=== PATIENT | male | born 1955 | race Caucasian/White ===

== ENCOUNTER 2023-09-15 09:59 | Day surgery (SDC) | payer MEDICARE, OTHER ==
[~2023-09-15] VITALS: Ht 177.8 cm; Wt 113.6 kg
[~2023-09-15 09:59] MED LIST: LR 1,000 ML IV SCH; Ondansetron 4 MG/2 ML VIAL IV PRN
[2023-09-15] MEDS ORDERED: Glycopyrrolate 0.2 MG/ML 1 ML VIAL ONE (12:03)
[2023-09-15] MEDS ORDERED: Lidocaine PF 2% (20 MG/ML) 5 ML VIAL ONE (12:03)
[2023-09-15 12:44] VITALS: BP 105/60; PULSE 48; TEMP 96.8
[2023-09-15 13:00] VITALS: BP 106/54; PULSE 53
[2023-09-15 13:15] VITALS: BP 117/61; PULSE 44
--- NOTE | 2023-09-15 13:37 | NUR ---
1244- PATIENT RETURNS TO [facility] [place] [facility] VIA CART. PT AWAKE AND ALERT. RESPIRATIONS UNLABORED. AMBULATED TO RECLINER CHAIR WITH 2:1 SBA. PT DENIES NAUSEA OR ABDOMINAL PAIN. HOOKED UP TO MONITOR AND VS OBTAINED. pT TAKING A BETA EARL- HE WAS ENCOURAGED TO CALL HIS BRICK OFFBEARER TO DISCUSS HIS LOW HR'S- PT AND HIS AGREED WITH PLAN. CALL LIGHT AT SIDE. 1256- PATIENT TOLERATING ORANGE JUICE& COFFEE AND MUFFIN WITHOUT NAUSEA OR DIFFICULTY SWALLOWING. 1317- DR. MELTON IN ROOM SPEAKING WITH PATIENT. 1327- D/C INSTRUCTIONS REVIEWED WITH PATIENT. PT VERBALIZED UNDERSTANDING AND A COPY OF INSTRUCTIONS PROVIDED IN D/C FOLDER. 1330- PATIENT DRESSES SELF. 1337- PATIENT DISCHARGED FROM UNIT VIA W/C TO A PERSONAL VEHICLE. PT LEFT HOSPITAL IN STABLE CONDITION.
[2023-09-15] MEDS ORDERED: PROTONIX 40MG T40 MG PO (14:40)
[2023-09-15] MEDS ORDERED: LIPITOR 80MG80 MG PO (14:40)
[2023-09-15] MEDS ORDERED: PRINIVIL5 MG PO (14:41)
[2023-09-15] MEDS ORDERED: SYNTHROID0.137 MG (14:41)
[2023-09-15] MEDS ORDERED: PLAVIX 75MG TAB75 MG PO (14:42)
[2023-09-15] MEDS ORDERED: TOPROL XL 25MG25 MG PO (14:42)
[2023-09-15] MEDS ORDERED: ZYRTEC 10MG10 MG PO (14:43)
[2023-09-15] MEDS ORDERED: THE MEDICINE S200 M2 PO (14:43)
[2023-09-15] MEDS ORDERED: PEPCID 20MG TAB20 MG PO (14:44)
[2023-09-15] MEDS ORDERED: VITAMIN D250 MCG PO (14:44)
[2023-09-15] MEDS ORDERED: ASPIRIN E.C. 8181 MG PO (14:45)
[2023-09-15] MEDS ORDERED: XALATAN EYE DROPS OU (14:46)
[2023-09-15] MEDS ORDERED: ALPHAGAN 15 ML15 ML OU (14:47)
[2023-09-15] MEDS ORDERED: COSOPT 2%-0.5%10 ML OU (14:47)
[2023-09-15 15:01] VITALS: BP 120/63; PULSE 50; TEMP 97.6
== END 2023-09-15 13:37 | disposition home or self-care (01) ==
LOC: SDCO 09:59
DX: K22.2 Esophageal obstruction (principal); G47.33 Obstructive sleep apnea (adult) (pediatric); F17.290 Nicotine dependence, other tobacco product, uncomplicated
CPT/HCPCS: C1726; J2704; J7120

== ENCOUNTER 2023-10-20 17:03 | Emergency (ER) | payer MEDICARE, OTHER ==
[~2023-10-20] VITALS: Ht 177.8 cm; Wt 109.1 kg
[~2023-10-20 17:03] MED LIST changes: +ALPHAGAN 15 ML15 ML OU; +ASPIRIN E.C. 8181 MG PO; +COSOPT 2%-0.5%10 ML OU; +LIPITOR 80MG80 MG PO; -LR 1,000 ML IV SCH; -Ondansetron 4 MG/2 ML VIAL IV PRN; +PEPCID 20MG TAB20 MG PO; +PLAVIX 75MG TAB75 MG PO; +PRINIVIL5 MG PO; +PROTONIX 40MG T40 MG PO; +SYNTHROID0.137 MG; +THE MEDICINE S200 M2 PO; +TOPROL XL 25MG25 MG PO; +VITAMIN D250 MCG PO; +XALATAN EYE DROPS OU; +ZYRTEC 10MG10 MG PO
[2023-10-20 17:11] VITALS: TEMP 98.1
[2023-10-20 17:45] LABS: BASO % 0.9 % (0.0-2.0); EOS # 0.1 K/mm3 (0.0-0.7); EOS % 2.2 % (0.0-4.0); GRAN # 2.5 K/mm3 (1.4-6.5); GRAN % 55.7 % (42.2-75.2); HEMATOCRIT 40.5 % (42.0-52.0); HEMOGLOBIN 14.2 g/dl (13.5-18.0); LYMPH # 1.4 K/mm3 (1.2-3.4); LYMPH % 31.6 % (20.0-51.0); MEAN CELL VOLUME 90 fl (80.0-100.0); MEAN CORPUSCULAR HEMOGLOBIN 31 pg (27-31); MEAN CORPUSCULAR HGB CONC 35 g/dl (33.0-37.0); MEAN PLATELET VOLUME 9.1 fl (7.4-10.4); MONO # 0.4 K/mm3 (0.1-0.6); MONO % 9.4 % (1.7-9.3); PLATELET COUNT 126 K/mm3 (130-400); RED BLOOD COUNT 4.52 M/mm3 (4.20-5.60)
[2023-10-20] MEDS ORDERED: Ketorolac 15 MG/ML VIAL IV ONE (17:45)
[2023-10-20 18:05] LABS: ALANINE AMINOTRANSFERASE 16 U/L (0-55); ALBUMIN 3.9 gm/dL (3.4-4.8); ALKALINE PHOSPHATASE 76 U/L (40-150); ANION GAP 7 mmol/L (7-16); AST,SGOT 22 U/L (5-34); BLOOD UREA NITROGEN 18 mg/dL (8-26); CALCIUM 9.4 mg/dL (8.4-10.2); CARBON DIOXIDE 23 mmol/L (23-31); CHLORIDE 112 mmol/L (98-107); CREATININE, serum 0.88 mg/dL (0.72-1.25); GLUCOSE 144 mg/dL (70-99); LIPASE 64 U/L (8-78); POTASSIUM 3.6 mmol/L (3.5-4.5); SODIUM 142 mmol/L (136-145); TOTAL PROTEIN 6.4 gm/dL (6.2-8.1)
[2023-10-20 18:17] LABS: TROPONIN-I < 0.010 ng/mL (0.00-0.033)
[2023-10-20 18:19] LABS: BILIRUBIN,TOTAL 0.6 mg/dL (0.2-1.2)
[2023-10-20 18:36] LABS: PH 5.5 (5.0-8.5); URINE APPEARANCE CLEAR (CLEAR/HAZY); URINE BLOOD NEGATIVE (NEGATIVE); URINE COLOR YELLOW (YELLOW); URINE GLUCOSE NEGATIVE (NEGATIVE); URINE KETONE NEGATIVE (NEGATIVE); URINE NITRATE NEGATIVE (NEGATIVE); URINE PROTEIN(semi-quant) NEGATIVE (NEGATIVE); URINE UROBILINOGEN 0.2 E.U/dL (0.2-1.0)
[2023-10-20 18:42] LABS: COLLECTION METHOD CLEAN CATCH
[2023-10-20] MEDS ORDERED: Home oxyCODONE/Acetaminophen 5/325 MG #4 TAB/PACK PO ONE (19:00)
[2023-10-20] MEDS ORDERED: ROXICODONE 55 MG/TAB PO (19:01)
[2023-10-20 19:13] VITALS: BP 136/69; PULSE 57
== END 2023-10-20 19:13 | disposition home or self-care (01) ==
LOC: COL.ER 17:03
PROVIDERS: Emergency Medicine
DX: N20.1 Calculus of ureter (principal); Z87.442 Personal history of urinary calculi; Z87.891 Personal history of nicotine dependence
CPT/HCPCS: J1885

== ENCOUNTER 2023-11-21 11:34 | Day surgery (SDC) | payer MEDICARE, OTHER ==
[~2023-11-21] VITALS: Ht 177.8 cm; Wt 113.8 kg
[2023-11-21] VITALS (19 sets, daily range): BP systolic 122–158; BP diastolic 61–89; PULSE 44–56; TEMP 96.9–98
[~2023-11-21 11:34] MED LIST changes: +Famotidine 20 MG TAB PO SCH; +LR 1,000 ML IV SCH; +Metoclopramide 10 MG TAB PO SCH; +ROXICODONE 55 MG/TAB PO
[2023-11-21] MEDS ORDERED: fentaNYL 50 MCG/ML 2 ML VIAL IV PRN ×2 (12:30)
[2023-11-21] MEDS ORDERED: HYDROmorphone 2 MG/1 ML VIAL IV PRN (12:30)
[2023-11-21] MEDS ORDERED: hydrALAZINE 20 MG/ML 1 ML VIAL IV PRN (12:30)
[2023-11-21] MEDS ORDERED: Ondansetron 4 MG/2 ML VIAL IV PRN ×2 (12:30→15:45)
[2023-11-21] MEDS ORDERED: droPERidol 2.5 MG/ML 2 ML VIAL IV PRN (12:30)
[2023-11-21] MEDS ORDERED: VITAMIN D362.5 MC1 PO (12:39)
[2023-11-21] MEDS ORDERED: TYLENOL 325MG325 MG PO (12:41)
[2023-11-21] MEDS ORDERED: FOCUS FACTOR (12:42)
--- NOTE | 2023-11-21 13:12 | NUR ---
pt to ct per cart. Pt onto ct table in prone position. Monitors applied and O2 on at 2l/nc.
[2023-11-21] MEDS ORDERED: Midazolam 2 MG/2 ML VIAL IV SCH ×2 (13:25→14:00)
--- NOTE | 2023-11-21 13:42 | NUR ---
1300: PATIENT TO RADIOLOGY VIA COT AT THIS TIME.
[2023-11-21] MEDS ORDERED: fentaNYL 50 MCG/ML 2 ML VIAL ONE (15:02)
[2023-11-21] MEDS ORDERED: Lidocaine PF 2% (20 MG/ML) 5 ML VIAL ONE (15:02)
--- NOTE | 2023-11-21 15:18 | NUR ---
1505 - Dr. Campuzano discussed with staff about obtaining a consent for a right ureteroscopy with laser stone ablation on the patient. Discussion had that patient received Versed before for attempted placement of guidewire at 1400. Dr. iWlls stated that he was still comfortable with the patient signing his own consent and reiterated that research shows patients competence after small doses. 1515 - Discussion had with patient at this time about procedure and Dr. Campuzano recommendation to have Right ureteroscopy with laser stone ablation. is at bedside and both patient and verbalized understanding of procedure to this nurse. Patient is alert and oriented x4. Dr. Campuzano also walked in at this time and discussed risks and benefits with the patient and they all agreed to proceed with procedure. Consent is signed by patient. Will continue to monitor at this time.
--- NOTE | 2023-11-21 15:19 | NUR ---
1433: PATIENT BACK FROM RADIOLOGY AT THIS TIME VIA COT. VSS. BREATHING EVEN AND UNLABORED. SPO2 94% ON ROOM AIR. 1445: PATIENT REQUESTING URINAL. URINATED 400ML OF TEA COLORED URINE. 1535: PATIENT TO OR AT THIS TIME.
[2023-11-21] MEDS ORDERED: Glycopyrrolate 0.2 MG/ML 1 ML VIAL ONE (15:39)
[2023-11-21] MEDS ORDERED: Acetaminophen 325 MG TAB PO PRN (15:45)
[2023-11-21] MEDS ORDERED: Naloxone 0.4 MG/ML VIAL IV PRN (15:45)
[2023-11-21] MEDS ORDERED: Hyoscyamine 0.125 MG Sublingual TAB SL PRN (15:45)
[2023-11-21] MEDS ORDERED: Rocuronium 50 MG/5 ML Multi-Dose VIAL ONE (15:52)
[2023-11-21] MEDS ORDERED: ePHEDrine 50 MG/ML VIAL ONE (15:54)
[2023-11-21] MEDS ORDERED: Lidocaine 2% (20 MG/ML) 20 ML UROJET UR ONE (16:00)
[2023-11-21] MEDS ORDERED: LR 1,000 ML IV ONE (16:03)
[2023-11-21] MEDS ORDERED: Acetaminophen 500 MG TAB PO SCH (16:39)
--- NOTE | 2023-11-21 18:33 | NUR ---
1640 Received post op from BRE Reynoso. 1655 Patient returned to bay 4 from PACU. Patient is alert and oriented, answering questions appropriately. 1700 Patient given juice and crackers with peanut butter for a PO challenge. Tolerated well. 1735 Reviewed printed physician discharge instructions and patient educational materials with patient and his . Questions in vited and answered. Patient given a strainer to strain urine. Patient has used a strainer previously. 1747 Patient to lobby via wheel chair for ride home with his in POV.
== END 2023-11-21 17:47 | disposition home or self-care (01) ==
LOC: SDCO 11:34
DX: N20.0 Calculus of kidney (principal); R35.0 Frequency of micturition; R35.1 Nocturia; G47.33 Obstructive sleep apnea (adult) (pediatric); Z87.891 Personal history of nicotine dependence
CPT/HCPCS: C1769; C2617; J0690; J2250; J2704; J3010; J7120

== ENCOUNTER 2023-12-05 13:57 | Day surgery (SDC) | payer MEDICARE, OTHER ==
[~2023-12-05] VITALS: Ht 177.8 cm; Wt 111.2 kg
[~2023-12-05 13:57] MED LIST changes: +FOCUS FACTOR; -Famotidine 20 MG TAB PO SCH; +Meclizine 25 MG TAB PO SCH; -Metoclopramide 10 MG TAB PO SCH; +TYLENOL 325MG325 MG PO; +VITAMIN D362.5 MC1 PO
[2023-12-05 15:29] LABS: BASO # 0.1 K/mm3 (0.0-0.2); BASO % 1.1 % (0.0-2.0); EOS # 0.2 K/mm3 (0.0-0.7); EOS % 3.2 % (0.0-4.0); GRAN # 2.6 K/mm3 (1.4-6.5); GRAN % 54.5 % (42.2-75.2); HEMATOCRIT 39.4 % (42.0-52.0); HEMOGLOBIN 13.7 g/dl (13.5-18.0); LYMPH # 1.6 K/mm3 (1.2-3.4); LYMPH % 32.6 % (20.0-51.0); MEAN CELL VOLUME 88 fl (80.0-100.0); MEAN CORPUSCULAR HEMOGLOBIN 31 pg (27-31); MEAN CORPUSCULAR HGB CONC 35 g/dl (33.0-37.0); MEAN PLATELET VOLUME 9.3 fl (7.4-10.4); MONO # 0.4 K/mm3 (0.1-0.6); MONO % 8.2 % (1.7-9.3); PLATELET COUNT 123 K/mm3 (130-400); RED BLOOD COUNT 4.48 M/mm3 (4.20-5.60); REDCELL DISTRIBUTION WIDTH-CV 12.8 % (11.5-14.5)
[2023-12-05] MEDS ORDERED: Ondansetron 4 MG/2 ML VIAL IV PRN ×2 (15:30→17:45)
[2023-12-05] MEDS ORDERED: fentaNYL 50 MCG/ML 2 ML VIAL IV PRN (15:30)
[2023-12-05] MEDS ORDERED: HYDROmorphone 2 MG/1 ML VIAL IV PRN (15:30)
[2023-12-05] MEDS ORDERED: hydrALAZINE 20 MG/ML 1 ML VIAL IV PRN (15:30)
[2023-12-05 15:46] LABS: CALCIUM 9.3 mg/dL (8.4-10.2); CREATININE, serum 0.91 mg/dL (0.72-1.25); POTASSIUM 4.1 mEq/L (3.5-4.5)
[2023-12-05 16:07] VITALS: BP 103/59; PULSE 52; TEMP 98.5
--- NOTE | 2023-12-05 16:11 | NUR ---
1434 Patient ambulatory to bay 7 with a steady gait, breathing even and unalabored. Patient is alert and oriented, accompanied by his . Consents reviewed and signed by pt. IV establishe, blood specimen obtained with IV start and sent to the lab. EKG completed. LR infusing via gravity at KVO. Call light in reach. Warm blanket provided.
[2023-12-05] MEDS ORDERED: Lidocaine PF 2% (20 MG/ML) 5 ML VIAL ONE (16:51)
[2023-12-05] MEDS ORDERED: fentaNYL 50 MCG/ML 2 ML VIAL ONE (16:51)
[2023-12-05] MEDS ORDERED: Ketorolac 30 MG/ML VIAL ONE (16:52)
[2023-12-05] MEDS ORDERED: NS 10 ML IV ONE (16:52)
[2023-12-05] MEDS ORDERED: Ondansetron 4 MG/2 ML VIAL ONE (16:52)
[2023-12-05] MEDS ORDERED: dexAMETHasone 10 MG/ML VIAL ONE (16:52)
[2023-12-05] MEDS ORDERED: Lidocaine 2% (20 MG/ML) 20 ML UROJET UR ONE ×2 (17:27→17:32)
[2023-12-05] MEDS ORDERED: Acetaminophen 325 MG TAB PO PRN (17:45)
[2023-12-05] MEDS ORDERED: Hyoscyamine 0.125 MG Sublingual TAB SL PRN (17:45)
[2023-12-05] MEDS ORDERED: Naloxone 0.4 MG/ML VIAL IV PRN (17:45)
[2023-12-05 18:14] VITALS: BP 113/69; PULSE 52; TEMP 98.6
[2023-12-05 18:30] VITALS: BP 118/55; PULSE 51
[2023-12-05 18:45] VITALS: BP 117/64; PULSE 580
[2023-12-05] MEDS ORDERED: Acetaminophen 500 MG TAB PO SCH (18:45)
[2023-12-05] MEDS ORDERED: NORCO 325 MG-51 TAB PO (19:23)
--- NOTE | 2023-12-05 19:47 | NUR ---
[id number]: PT TO [facility] FROM PACU S/P CYSTO, R URETEROSCOPY, LASER STONE ABLATION AND STENT EXCHANGE A&O, PLACED ON MONITOR, VSS ON RA RECEIVED REPORT AND ASSUMED CARE OF PT FROM BRE STEARNS TO BEDSIDE, C/O MINIMAL/TOLERABLE URGENCY - VOIDED 300ML OF PINK CLEAR OUTPUT PROVIDED FOOD/FLUIDS, TOLERATING WELL PT HAS REMAINED A&O, NAD, VSS ON RA, TOLERATING PO, IS WITHOUT SIGNIFICANT COMPLAINT, WITH STEADY GAIT BY END OF STAY IV D/C'D. D/C INSTRUCTIONS, FOLLOW UP REVIEWED AND HANDED TO PT. ALL QUESTIONS AND CONCERNS ADDRESSED TO PT SATISFACTION. TAKEN TO EXIT VIA W/C WITH ALL BELONGINGS AND PAPERWORK IN HAND, ASSISTED INTO PASSENGER SEAT OF POV. FAMILY TO DRIVE HOME.
== END 2023-12-05 19:15 | disposition home or self-care (01) ==
LOC: SDCO 13:57
PROVIDERS: Nurse Anesthetist, Certified Registered
DX: N20.0 Calculus of kidney (principal); G47.33 Obstructive sleep apnea (adult) (pediatric); K21.9 Gastro-esophageal reflux disease without esophagitis; Z87.891 Personal history of nicotine dependence
CPT/HCPCS: C1769; C2617; J0690; J1100; J1885; J2405; J2704; J3010; J7120